=== PATIENT | male | born 2000 | race Caucasian/White ===

== ENCOUNTER 2020-07-16 18:41 | Emergency (ER) | payer BC, SELFPAY ==
[2020-07-16 19:01] VITALS: BP 127/80; PULSE 76; RESP 18; TEMP 36.6; O2SAT 97; BMI 27.1
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
[2020-07-16] MEDS: tetanus-dipt-pertussis 0.5 mL SDV IM (20:35)
[2020-07-16] MEDS: bacitracin ointment Pkt 1 EACH TOPICAL (20:35)
[2020-07-16 21:07] VITALS: PULSE 78; RESP 16; O2SAT 96
[2020-07-16 21:08] VITALS: BP 160/107; PULSE 79; RESP 17; O2SAT 96
== END 2020-07-16 21:10 | disposition home or self-care (01) ==
PROVIDERS: Emergency Provider Nurse Practitioner Family; PCP Registered Nurse
DX: T20.00XA Burn of unspecified degree of head, face, and neck, unspecified site, initial encounter (principal); X08.8XXA Exposure to other specified smoke, fire and flames, initial encounter; Z23 Encounter for immunization
CPT/HCPCS: 12345; 90471; 90715; 99281; 99283

== ENCOUNTER → 2021-08-18 10:46 | Outpatient (BNVA) | payer SELFPAY | PROVIDERS: PCP Registered Nurse; Visit Provider Dermatology | DX: Z01.89 Encounter for other specified special examinations (principal) ==